=== PATIENT | male | born 1950 | race Caucasian/White ===

== ENCOUNTER 2016-08-19 11:10 | Inpatient (IN) | payer MEDICARE, SELFPAY ==
[~2016-08-19] VITALS: Ht 170.2 cm; Wt 68.7 kg
[~2016-08-19 11:10] MED LIST: ACIDOPHILUS1 CAP PO; ASPIR 8181 MG PO; ASPIRIN325 MG PO; ATIVAN0.5 MG PO; CATAPRES0.3 MG PO; CELEXA10 MG PO; CELEXA40 MG PO; CLONIDINE HCL0.3 MG PO; DIPYRIDAMOLE75 MG PO; DITROPAN XL10 MG PO; FLOMAX0.4 MG PO; GLUCOPHAGE1000 MG PO; GLUCOPHAGE500 MG PO; HYDRALAZINE HCL50 MG PO; LIPITOR10 MG PO; LOTENSIN20 MG PO; NORVASC10 MG PO; NOVOLOG FL100 UNIT/1 SUBCUT; OMNICEF300 MG PO; PERSANTINE75 MG PO; PLAVIX75 MG PO; PREVALITE PACKET4 GM PO; PRILOSEC40 MG PO; REMERON15 MG PO; RESTORIL15 MG PO; SENEXON-S TABL1 EACH PO; SEROQUEL25 MG PO; SIMVASTATIN40 MG PO; SYNTHROID75 MCG PO; TRESIBA FL200 UNIT/1 SUBCUT; VITAMIN D31000 UNI1 PO; ZOFRAN4 MG PO
[2016-08-20] MEDS ORDERED: ASPIRIN81 MG PO (08:42)
[2016-08-20] MEDS ORDERED: CATAPRES0.2 MG PO (08:53)
== END 2016-08-20 09:08 | disposition short-term general hospital (02) | DRG 683 ==
LOC: IP 11:10
PROVIDERS: ADMIT Family Medicine
DX: N17.9 Acute kidney failure, unspecified (principal); I12.0 Hypertensive chronic kidney disease with stage 5 chronic kidney disease or end stage renal disease; E11.22 Type 2 diabetes mellitus with diabetic chronic kidney disease; N18.9 Chronic kidney disease, unspecified; D63.1 Anemia in chronic kidney disease; Z86.73 Personal history of transient ischemic attack (TIA), and cerebral infarction without residual deficits; Z87.891 Personal history of nicotine dependence
CPT/HCPCS: J1815